=== PATIENT | male | born 1955 | race Caucasian/White ===

== ENCOUNTER → 2019-05-11 08:06 | Emergency (ER) | payer BC ==
--- NOTE | 2019-05-11 08:32 | EDM.PDOC ---
ED HPI GENERAL MEDICAL PROBLEM - General Stated Complaint: HEART ATTACK Time Seen by Provider: 05/11/19 08:06 Source of Information: Reports: Patient, EMS, Family History Limitations: Reports: Other (unresponsive) - History of Present Illness INITIAL COMMENTS - FREE TEXT/NARRATIVE: 63 y.o.w.m was hunting, pt was gasping and collapsed in the field, witnessed by a nurse, CPR was stared immediately in the field, EMS was called. Pt was intubated, CPR was continued and 6 round of epi were given by the EMS crew. Pt was rushed to ED. No Pulse, no heart tones, pupils fixed to light and accommodation, no response to pain, heart showed asystole, livido gravidarum. Family arrived in the ED and was informed about the the issue at 8.07 am Onset Date: 05/11/19 Onset Time: 07:20 Duration: Minutes: - Related Data Allergies Allergy/AdvReac Type Severity Reaction Status Date / Time No Known Allergies Allergy Verified 05/11/19 09:04 Home Meds: Home Meds Aspirin [Ansley Chewable] 81 mg PO DAILY 05/11/19 [History] Multivitamin with Minerals [Multiple Vitamin] 1 tab PO DAILY 05/11/19 [History] ED ROS GENERAL - Review of Systems Review Of Systems: Unable To Obtain ED EXAM, GENERAL - Physical Exam Exam: See Below Exam Limited By: Other (no pulse, no hear tones, pupils fixed to light, no response to pain) General Appearance: Other ( on arrival) Course - Vital Signs Text/Narrative:: 63 y.o.w.m was hunting, pt was gasping and collapsed in the field, witnessed by a nurse, CPR was stared immediately in the field, EMS was called. Pt was intubated, CPR was continued and 6 round of epi were given by the EMS crew. Pt was rushed to ED. No Pulse, no heart tones, pupils fixed to light and accommodation, no response to pain, heart showed asystole. Livido gravidarum was present. Family arrived in the ED and was informed about the the issue at 8.07 am PE: DOA Labs/Imaging: Not indicated Impression: on arrival to the ED Tx: None Family was present. Spiritual Help was present. Last Recorded V/S: Last Vital Signs Temp Pulse 0 L 05/11/19 08:06 Resp 0 L 05/11/19 08:06 BP Pulse Ox Departure - Departure Time of Disposition: 08:05 Disposition: 20 Clinical Impression: on arrival in emergency department
== END | disposition expired ==
LOC: FB.ED 08:06
DX: I46.9 Cardiac arrest, cause unspecified (principal)
CPT/HCPCS: 99285